=== PATIENT | male | born 1990 | race American Indian/Alaskan Native ===

== ENCOUNTER 2021-06-12 10:09 | Emergency (ER) | payer SELFPAY ==
[2021-06-12] MEDS ORDERED: PENICILLIN G BENZATHINE 1.2 MILLION UNIT/2 ML INJ IM ONE (13:27)
--- NOTE | 2021-06-12 13:32 | Emergency Department Report ---
- General Chief complaint: Skin/Abscess/Foreign Body Stated complaint: VARIOUS LUMPS ON SKIN Time Seen by Provider: 06/12/21 13:18 Source: patient Mode of arrival: Ambulatory Limitations: No Limitations - History of Present Illness Initial comments: 30 yom with pmh of HIV who is on antiviral medication presents to ed for evaluation of rash to hands and feet. He denies any pain or drainage. He states that he was diagnosed with syphillis a few months ago but did not take medication as prescribed. MD complaint: rash -: Gradual, week(s) (1-2) Location: L hand, R hand, L foot, R foot Severity scale (0 -10): 0 Associated symptoms: denies other symptoms Treatments Prior to Arrival: none - Related Data Previous Rx's Medication Instructions Recorded Last Taken Type DOXYCYCLINE Hyclate [Vibramycin 100 mg PO Q12HR #14 capsule 06/12/21 Unknown Rx CAP] Allergies Allergy/AdvReac Type Severity Reaction Status Date / Time No Known Allergies Allergy Unverified 06/12/21 10:49 Abscess Boil HPI - HPI Chief Complaint: Skin/Abscess/Foreign Body Stated Complaint: VARIOUS LUMPS ON SKIN Time Seen by Provider: 06/12/21 13:18 Home Medications: Previous Rx's Medication Instructions Recorded Last Taken Type DOXYCYCLINE Hyclate [Vibramycin 100 mg PO Q12HR #14 capsule 06/12/21 Unknown Rx CAP] Allergies/Adverse Reactions: Allergies Allergy/AdvReac Type Severity Reaction Status Date / Time No Known Allergies Allergy Unverified 06/12/21 10:49 ED Review of Systems ROS: Stated complaint: VARIOUS LUMPS ON SKIN Other details as noted in HPI Comment: All other systems reviewed and negative Constitutional: denies: chills, fever, malaise, weakness Cardiovascular: denies: chest pain Endocrine: no symptoms reported Genitourinary: denies: urgency, dysuria, frequency, hematuria, discharge, testicular pain Skin: rash Neurological: denies: headache ED Past Medical Hx - Medications Home Medications: Home Medications Medication Instructions Recorded Confirmed Last Taken Type DOXYCYCLINE Hyclate [Vibramycin 100 mg PO Q12HR #14 capsule 06/12/21 Unknown Rx CAP] ED Physical Exam - General Limitations: No Limitations General appearance: alert, in no apparent distress - Head Head exam: Present: atraumatic, normocephalic - Eye Eye exam: Present: normal appearance. Absent: conjunctival injection - Neck Neck exam: Present: normal inspection - Respiratory Respiratory exam: Present: normal lung sounds bilaterally. Absent: respiratory distress, wheezes, rales, rhonchi, stridor - Cardiovascular Cardiovascular Exam: Present: regular rate, normal heart sounds - GI/Abdominal GI/Abdominal exam: Absent: soft, distended, tenderness - Extremities Exam Extremities exam: Absent: normal inspection - Back Exam Back exam: Present: normal inspection - Neurological Exam Neurological exam: Present: oriented X3 - Psychiatric Psychiatric exam: Present: normal affect, normal mood - Skin Skin exam: Present: warm, dry, rash (rash with brownish lesions noted to palms of bilateral hands and soles of bilateral feet) ED Course Vital Signs 06/12/21 06/12/21 10:51 14:46 Temperature 98.9 F Pulse Rate 69 50 L Respiratory 18 16 Rate Blood Pressure 123/74 110/73 [Right] O2 Sat by Pulse 97 98 Oximetry ED Medical Decision Making - Medical Decision Making 30 yom with pmh of HIV who is on antiviral medication presents to ed for evaluation of rash to hands and feet. He denies any pain or drainage. He states that he was diagnosed with syphillis a few months ago but did not take medication as prescribed. Rash consistent with rash of secondary syphillis, so patient will be treated with Bicillin LA 2.4 million units and one week coarse of doxycycline given that patient is HIV positive and did not take initial medications. He was advised to follow up with his pcp for evaluation and management. Critical care attestation.: If time is entered above; I have spent that time in minutes in the direct care of this critically ill patient, excluding procedure time. ED Disposition Clinical Impression: Rash of secondary syphilis Disposition: HOME / SELF CARE / HOMELESS Is pt being admited?: No Does the pt Need Aspirin: No Condition: Stable Instructions: Syphilis, Antibiotic Medicine, Adult, [id number] Additional Instructions: Take medications as prescribed. Follow-up with primary care provider if no improvement or worsening symptoms. Prescriptions: DOXYCYCLINE Hyclate [Vibramycin CAP] 100 mg PO Q12HR #14 capsule Referrals: [facility] [Other] - 3-5 Days Time of Disposition: 14:05
[2021-06-12 14:47] VITALS: BP 110/73
== END 2021-06-12 14:47 | disposition home or self-care (01) ==
LOC: ED 10:09
DX: A51.39 Other secondary syphilis of skin (principal); Z79.899 Other long term (current) drug therapy
CPT/HCPCS: 96372; 99282; J0561